=== PATIENT | male | born 1935 | race African-American/Black ===

== ENCOUNTER → 2018-03-06 | Outpatient (CLI) | payer MEDICARE, BC ==
[~2018-03-06] MED LIST: BRIM10DR2 OP; BUSP10TA3 PO; CLON0.1T PO; DUTA0.5C2 PO; FURO40TA5 PO; LOVA20TA2 PO; METO25TA6 PO; TRAV2.5D EACHEYE; VALS320T2 PO
== END | disposition home or self-care (01) ==
LOC: US 12:31
PROVIDERS: ATTEND Internal Medicine Nephrology
DX: N18.9 Chronic kidney disease, unspecified (principal)
CPT/HCPCS: 76770

== ENCOUNTER → 2023-02-15 | Outpatient (CLI) | payer MEDICARE, BC ==
[~2023-02-15] MED LIST changes: -TRAV2.5D EACHEYE; +TRAV2.5D9 EACHEYE
== END | disposition home or self-care (01) ==
LOC: US 14:50
PROVIDERS: ATTEND Internal Medicine Nephrology
DX: N20.0 Calculus of kidney (principal); I72.3 Aneurysm of iliac artery; N18.30 Chronic kidney disease, stage 3 unspecified
CPT/HCPCS: 76770

== ENCOUNTER 2023-04-25 14:03 | Inpatient (IN) | payer MEDICARE, BC ==
[~2023-04-25] VITALS: Ht 177.8 cm; Wt 73.0 kg
[2023-04-25] MEDS ORDERED: SODIUM CHLORIDE 0.9% 1000ML BAG (SEPSIS BOLUS) IV ONE (14:45)
[2023-04-25] MEDS ORDERED: CEFTRIAXONE 1GM PREMIX 50 ML IV ONE (14:45)
[2023-04-25 14:53] LABS: BASOPHILS % 0.4 % (0.0-2.0); EOSINOPHILS % 0.3 % (0.0-5.0); HEMATOCRIT. 29.6 % (42.0-52.0); HEMOGLOBIN. 9.8 g/dL (14.0-18.0); LYMPHOCYTES % 7.6 % (20.0-50.0); MEAN CORPUSCULAR HEMOGLOBIN 30.2 pg (28.0-32.0); MEAN CORPUSCULAR VOLUME 90.9 fL (80.0-94.0); MEAN PLATELET VOLUME 8.8 fl (7.4-10.4); MONOCYTES % 8.3 % (2.0-8.0); NEUTROPHILS % 83.4 % (40.0-76.0); PLATELET 111 x1000/uL (130-400); RED BLOOD CELL COUNT 3.26 mill/uL (4.7-6.1); RED CELL DISTRIBUTION WIDTH 13.6 % (11.6-14.6)
[2023-04-25 14:59] LABS: INR 1.3; PROTHROMBIN TIME 13.8 sec (9.6-11.0)
[2023-04-25 15:00] LABS: CHLORIDE 103 mEq/L (98-107)
[2023-04-25] MEDS: DEXT 5%/0.45% NACL 1000ML 1,000 ML IV SCH (16:00)
[2023-04-25] MEDS ORDERED: ONDANSETRON HCL 4MG/2ML INJ IV PRN ×2 (16:00→23:00)
[2023-04-25] MEDS ORDERED: MAGNESIUM/ALUMINUM HYDROXIDE/SIMETHICONE 30ML UDC PO PRN (23:00)
[2023-04-25] MEDS ORDERED: CLONIDINE 0.1MG TABLET PO PRN (23:00)
[2023-04-25] MEDS ORDERED: ACETAMINOPHEN 325MG TABLET PO PRN (23:00)
[2023-04-25] MEDS ORDERED: GUAIFENESIN 200MG/10ML SUGAR FREE UDC PO PRN (23:00)
[2023-04-25] MEDS ORDERED: IPRATROPIUM/ALBUTEROL 0.5-3(2.5)MG/3ML NEB NEB PRN (23:00)
[2023-04-26] VITALS (9 sets, daily range): BP systolic 107–167; BP diastolic 44–86; PULSE 61–96; RESP 16–27; TEMP 96.9–98.9
[2023-04-26 00:35] LABS: PROSTRATE SPECIFIC AG TOTAL 0.22 ng/mL (0.0-4.0)
[2023-04-26] MEDS: ACETAMINOPHEN 325MG TABLET PO PRN ×3 (00:45→23:39)
[2023-04-26 01:01] LABS: VITAMIN B12 SERUM 1225 pg/mL (211-911)
[2023-04-26 01:34] LABS: HEPATITIS B SURFACE ANTIGEN NEGATIVE
[2023-04-26 06:16] LABS: HEMATOCRIT. 28.6 % (42.0-52.0); HEMOGLOBIN. 9.6 g/dL (14.0-18.0); MEAN CORPUSCULAR VOLUME 89.1 fL (80.0-94.0); MEAN PLATELET VOLUME 9.6 fl (7.4-10.4); PLATELET 113 x1000/uL (130-400); RED BLOOD CELL COUNT 3.21 mill/uL (4.7-6.1); RED CELL DISTRIBUTION WIDTH 13.6 % (11.6-14.6)
[2023-04-26 06:35] LABS: CHLORIDE 107 mEq/L (98-107)
[2023-04-26] MEDS: BLOOD SUGAR DIAGNOSTIC STRIP TEST SCH ×4 (06:43→21:00)
[2023-04-26] MEDS: INSULIN LISPRO 100 UNITS/ML SUBCUT SCH ×4 (06:45→21:00)
[2023-04-26 06:52] LABS: CREATINE KINASE 139 IU/L (39-308); CREATINE KINASE MB FRACTION 2.9 ng/mL (0.5-3.6); HDL CHOLESTEROL 51 mg/dL (40-59); LDL CHOLESTEROL 84 mg/dL (5-100); T4 FREE 0.98 ng/dL (0.76-1.46)
[2023-04-26] MEDS: AMLODIPINE 5MG TABLET PO SCH (08:21)
[2023-04-26 09:00] LABS: CLARITY URINE CLEAR (CLEAR); COLOR URINE YELLOW (YELLOW); KETONES URINE NEGATIVE (NEGATIVE); LEUKOCYTE ESTERASE URINE NEGATIVE (NEGATIVE); NITRITE URINE NEGATIVE (NEGATIVE); OCCULT BLOOD URINE 2+ (NEGATIVE); PROTEIN URINE TRACE (NEGATIVE); UROBILINOGEN URINE 0.2 E.U./dL (0.2-1.0)
[2023-04-26 09:25] LABS: *AMPHETAMINES SCREEN URINE NEGATIVE (NEGATIVE); *BARBITURATES SCREEN URINE NEGATIVE (NEGATIVE); *BENZODIAZEPINES SCREEN URINE NEGATIVE (NEGATIVE); *COCAINE SCREEN URINE NEGATIVE (NEGATIVE); CANNABINOID URINE SCREEN NEGATIVE (NEGATIVE); METHADONE URINE SCREEN NEGATIVE (NEGATIVE); OPIATES URINE SCREEN NEGATIVE (NEGATIVE); PHENCYCLIDINE URINE SCREEN NEGATIVE (NEGATIVE)
[2023-04-26] MEDS: APIXABAN 2.5 MG TABLET PO SCH ×2 (11:27→16:22)
[2023-04-26] MEDS: LOSARTAN POTASSIUM 100 MG TABLET PO SCH (11:27)
[2023-04-26] MEDS: PIPERACILLIN/TAZOBACTAM 3.375 G in DEXTROSE 5% WATER 50 ML IV SCH ×3 (11:28→23:03)
[2023-04-26] MEDS: DEXT 5%/0.45% NACL 1000ML 1,000 ML IV SCH (11:30)
[2023-04-26] MEDS ORDERED: IOHEXOL-350 100 ML BOTTLE ONE (14:06)
[2023-04-26 14:14] LABS: PLATELET ESTIMATE SLIGHTLY DECREASED
[2023-04-26 14:54] LABS: TOTAL IRON BINDING CAPACITY 184 ug/dL (250-450)
[2023-04-26] MEDS ORDERED: CEFTRIAXONE 1,000 MG in DEXTROSE 5% WATER 50 ML IV SCH (15:00)
[2023-04-26] MEDS: BRIMONIDINE 0.2% OPHTH DROPS 5ML EACHEYE SCH ×2 (15:20→22:55)
[2023-04-26 15:57] LABS: CREATINE KINASE MB FRACTION 3.6 ng/mL (0.5-3.6)
[2023-04-26] MEDS: PANTOPRAZOLE SODIUM 40 MG/VIAL IV SCH (16:22)
[2023-04-26] MEDS: METOPROLOL TARTRATE 25MG TABLET PO SCH (16:23)
[2023-04-26 20:29] LABS: HEMATOCRIT 28.7 % (42.0-52.0); HEMOGLOBIN 9.6 g/dL (14.0-18.0)
[2023-04-26] MEDS: DOXAZOSIN MESYLATE 4MG TABLET PO SCH (21:00)
[2023-04-26] MEDS: BUSPIRONE HCL 10MG TABLET PO SCH (21:24)
[2023-04-26] MEDS: DUTASTERIDE 0.5MG CAPSULE PO SCH (21:25)
[2023-04-27] VITALS: BP 141/87; PULSE 66; RESP 24; TEMP 97.4
[2023-04-27 01:15] LABS: HEMATOCRIT 31.6 % (42.0-52.0); HEMOGLOBIN 10.3 g/dL (14.0-18.0)
[2023-04-27] MEDS: PANTOPRAZOLE SODIUM 40 MG/VIAL IV SCH ×3 (03:53→23:54)
[2023-04-27 04:00] VITALS: BP 153/88; PULSE 65; RESP 24; TEMP 96.9
[2023-04-27] MEDS: DEXT 5%/0.45% NACL 1000ML 1,000 ML IV SCH ×2 (04:19→23:46)
[2023-04-27] MEDS: BRIMONIDINE 0.2% OPHTH DROPS 5ML EACHEYE SCH ×3 (06:27→22:00)
[2023-04-27] MEDS: PIPERACILLIN/TAZOBACTAM 3.375 G in DEXTROSE 5% WATER 50 ML IV SCH ×3 (06:30→21:18)
[2023-04-27] MEDS: BLOOD SUGAR DIAGNOSTIC STRIP TEST SCH ×4 (06:30→21:00)
[2023-04-27] MEDS: INSULIN LISPRO 100 UNITS/ML SUBCUT SCH ×4 (07:05→21:00)
[2023-04-27 07:54] VITALS: BP 119/84; PULSE 98; RESP 16; TEMP 97.2
[2023-04-27] MEDS: METOPROLOL TARTRATE 25MG TABLET PO SCH ×2 (08:37→17:19)
[2023-04-27] MEDS: LOSARTAN POTASSIUM 100 MG TABLET PO SCH (08:37)
[2023-04-27] MEDS: LORAZEPAM 2MG/ML CPJ IV PRN ×2 (08:38→17:30)
[2023-04-27] MEDS: AMLODIPINE 5MG TABLET PO SCH (08:38)
[2023-04-27 09:19] LABS: HEMATOCRIT 27.8 % (42.0-52.0); HEMOGLOBIN 9.4 g/dL (14.0-18.0)
[2023-04-27] MEDS ORDERED: POTASSIUM CHLORIDE 20MEQ TABLET SR PO NR (11:45)
[2023-04-27] MEDS: DEXTROSE 50% WATER 50ML SYRINGE IV PRN (11:58)
[2023-04-27] MEDS ORDERED: IOHEXOL-350 100 ML BOTTLE ONE (12:04)
[2023-04-27] MEDS: FERROUS SULFATE 325MG TABLET PO SCH ×2 (12:07→17:19)
[2023-04-27 12:23] VITALS: BP 132/72; PULSE 71; RESP 14; TEMP 97.8
[2023-04-27 16:53] VITALS: BP 103/60; PULSE 61; RESP 18; TEMP 98
[2023-04-27 17:13] LABS: HEMATOCRIT 29.3 % (42.0-52.0); HEMOGLOBIN 9.7 g/dL (14.0-18.0)
[2023-04-27 20:00] VITALS: BP 124/72; PULSE 60; RESP 19; TEMP 98
[2023-04-27] MEDS: DOXAZOSIN MESYLATE 4MG TABLET PO SCH ×2 (21:00→23:53)
[2023-04-27] MEDS: DUTASTERIDE 0.5MG CAPSULE PO SCH ×2 (21:00→23:53)
[2023-04-27] MEDS: BUSPIRONE HCL 10MG TABLET PO SCH ×2 (21:00→23:53)
[2023-04-28] VITALS: BP 137/82; PULSE 68; RESP 16; TEMP 97.8
[2023-04-28 04:00] VITALS: BP 123/58; PULSE 68; RESP 18; TEMP 97.5
[2023-04-28] MEDS: PIPERACILLIN/TAZOBACTAM 3.375 G in DEXTROSE 5% WATER 50 ML IV SCH ×3 (05:48→23:37)
[2023-04-28] MEDS: BRIMONIDINE 0.2% OPHTH DROPS 5ML EACHEYE SCH ×3 (05:54→23:46)
[2023-04-28 06:35] LABS: HEMATOCRIT. 27.9 % (42.0-52.0); HEMOGLOBIN. 9.4 g/dL (14.0-18.0); MEAN CORPUSCULAR HEMOGLOBIN 29.6 pg (28.0-32.0); MEAN CORPUSCULAR VOLUME 88.3 fL (80.0-94.0); MEAN PLATELET VOLUME 10.5 fl (7.4-10.4); PLATELET 107 x1000/uL (130-400); RED BLOOD CELL COUNT 3.17 mill/uL (4.7-6.1); RED CELL DISTRIBUTION WIDTH 13.6 % (11.6-14.6)
[2023-04-28] MEDS: BLOOD SUGAR DIAGNOSTIC STRIP TEST SCH ×4 (06:50→21:00)
[2023-04-28 06:59] LABS: PHOSPHORUS 2.5 mg/dL (2.5-4.9)
[2023-04-28] MEDS ORDERED: PHENYLEPHRINE 100MCG/ML 10ML VIAL (CATH LAB) ONE (07:00)
[2023-04-28] MEDS: INSULIN LISPRO 100 UNITS/ML SUBCUT SCH ×4 (07:06→21:00)
[2023-04-28] MEDS: FERROUS SULFATE 325MG TABLET PO SCH ×3 (07:20→18:24)
[2023-04-28 08:00] VITALS: BP 114/64; PULSE 69; RESP 13; TEMP 98.3
[2023-04-28] MEDS: AMLODIPINE 5MG TABLET PO SCH (09:00)
[2023-04-28] MEDS: PANTOPRAZOLE SODIUM 40 MG/VIAL IV SCH ×2 (09:00→23:46)
[2023-04-28] MEDS: METOPROLOL TARTRATE 25MG TABLET PO SCH ×2 (09:00→18:24)
[2023-04-28] MEDS: LOSARTAN POTASSIUM 100 MG TABLET PO SCH (09:00)
[2023-04-28] MEDS ORDERED: IODIXANOL 320MG/ML 100 ML BOTTLE IV ONE (09:57)
[2023-04-28] MEDS ORDERED: IODIXANOL 320 MG/ML 150ML BOTTLE IV ONE (09:57)
[2023-04-28] MEDS ORDERED: MORPHINE SULFATE 2 MG/ML CPJ (NOT FOR IM USE) IV PRN (10:00)
[2023-04-28] MEDS ORDERED: LIDOCAINE HCL 1% 10 MG/ML 10ML VIAL ONE (10:03)
[2023-04-28] MEDS ORDERED: MIDAZOLAM HCL 2 MG/2 ML VIAL ONE (10:04)
[2023-04-28] MEDS ORDERED: PROPOFOL 200MG/20ML VIAL IV ONE (10:04)
[2023-04-28] MEDS ORDERED: FENTANYL CITRATE/PF 50MCG/ML 2ML VIAL ONE (10:04)
[2023-04-28] MEDS ORDERED: LIDOCAINE HCL 1% 20ML VIAL (Pyxis) INJ ONE (10:15)
[2023-04-28] MEDS ORDERED: NALOXONE HCL 0.4MG/ML VIAL IV PRN (10:15)
[2023-04-28] MEDS ORDERED: ONDANSETRON HCL 4MG/2ML INJ IV PRN (10:45)
[2023-04-28] MEDS ORDERED: MEPERIDINE HCL/PF 25MG/ML CPJ IV PRN (10:45)
[2023-04-28] MEDS ORDERED: LABETALOL 5MG/ML SYR 20 MG/4 ML SYRINGE IV PRN (10:45)
[2023-04-28] MEDS ORDERED: HYDROMORPHONE HCL/PF 2MG/ML CPJ IV PRN (10:45)
[2023-04-28] MEDS ORDERED: CALCIUM GLUCONATE 1GM PREMIX 50 ML IV NR (11:00)
[2023-04-28 16:00] VITALS: BP 124/70; PULSE 65; RESP 18; TEMP 97.2
[2023-04-28 16:13] LABS: HEMATOCRIT. 25.9 % (42.0-52.0); HEMOGLOBIN. 8.8 g/dL (14.0-18.0); MEAN CORPUSCULAR HEMOGLOBIN 30.1 pg (28.0-32.0); MEAN CORPUSCULAR VOLUME 88.2 fL (80.0-94.0); MEAN PLATELET VOLUME 9.8 fl (7.4-10.4); PLATELET 98 x1000/uL (130-400); RED BLOOD CELL COUNT 2.94 mill/uL (4.7-6.1); RED CELL DISTRIBUTION WIDTH 13.9 % (11.6-14.6)
[2023-04-28 23:20] LABS: PLATELET ESTIMATE DECREASED
[2023-04-28 23:21] VITALS: BP 144/85; PULSE 72; RESP 12; TEMP 98.5
[2023-04-28] MEDS: DEXT 5%/0.45% NACL 1000ML 1,000 ML IV SCH (23:37)
[2023-04-28] MEDS: DUTASTERIDE 0.5MG CAPSULE PO SCH (23:45)
[2023-04-28] MEDS: DOXAZOSIN MESYLATE 4MG TABLET PO SCH (23:45)
[2023-04-28] MEDS: BUSPIRONE HCL 10MG TABLET PO SCH (23:46)
[2023-04-29] VITALS (7 sets, daily range): BP systolic 105–124; BP diastolic 56–69; PULSE 64–85; RESP 14–20; TEMP 97.6–99.4
[2023-04-29] MEDS: PIPERACILLIN/TAZOBACTAM 3.375 G in DEXTROSE 5% WATER 50 ML IV SCH ×3 (05:50→21:36)
[2023-04-29] MEDS: BRIMONIDINE 0.2% OPHTH DROPS 5ML EACHEYE SCH ×3 (05:51→21:36)
[2023-04-29] MEDS: BLOOD SUGAR DIAGNOSTIC STRIP TEST SCH ×4 (06:50→21:53)
[2023-04-29] MEDS: INSULIN LISPRO 100 UNITS/ML SUBCUT SCH ×4 (07:20→21:00)
[2023-04-29] MEDS: METOPROLOL TARTRATE 25MG TABLET PO SCH ×2 (08:32→17:00)
[2023-04-29] MEDS: AMLODIPINE 5MG TABLET PO SCH (08:32)
[2023-04-29] MEDS: PANTOPRAZOLE SODIUM 40 MG/VIAL IV SCH ×2 (08:32→21:33)
[2023-04-29] MEDS: FERROUS SULFATE 325MG TABLET PO SCH ×3 (08:32→17:17)
[2023-04-29] MEDS: LOSARTAN POTASSIUM 100 MG TABLET PO SCH (08:32)
[2023-04-29 12:36] LABS: HEMATOCRIT. 24.6 % (42.0-52.0); HEMOGLOBIN. 8.4 g/dL (14.0-18.0); MEAN CORPUSCULAR HEMOGLOBIN 30.3 pg (28.0-32.0); MEAN CORPUSCULAR VOLUME 89.4 fL (80.0-94.0); MEAN PLATELET VOLUME 10.1 fl (7.4-10.4); PLATELET 101 x1000/uL (130-400); RED BLOOD CELL COUNT 2.76 mill/uL (4.7-6.1); RED CELL DISTRIBUTION WIDTH 13.4 % (11.6-14.6)
[2023-04-29 13:49] LABS: PLATELET ESTIMATE DECREASED
[2023-04-29 14:40] LABS: PLATELET ESTIMATE DECREASED
[2023-04-29] MEDS: DEXT 5%/0.45% NACL 1000ML 1,000 ML IV SCH (16:46)
[2023-04-29] MEDS: BUSPIRONE HCL 10MG TABLET PO SCH (21:33)
[2023-04-29] MEDS: DUTASTERIDE 0.5MG CAPSULE PO SCH (21:33)
[2023-04-29] MEDS: DOXAZOSIN MESYLATE 4MG TABLET PO SCH (21:35)
[2023-04-30] VITALS: BP 116/56; PULSE 71; RESP 18; TEMP 98.2
[2023-04-30 04:00] VITALS: BP 134/60; PULSE 77; RESP 18; TEMP 97.9
[2023-04-30] MEDS: BRIMONIDINE 0.2% OPHTH DROPS 5ML EACHEYE SCH ×3 (06:05→22:00)
[2023-04-30] MEDS: PIPERACILLIN/TAZOBACTAM 3.375 G in DEXTROSE 5% WATER 50 ML IV SCH ×3 (06:05→22:00)
[2023-04-30] MEDS: FERROUS SULFATE 325MG TABLET PO SCH ×3 (06:05→17:45)
[2023-04-30] MEDS: BLOOD SUGAR DIAGNOSTIC STRIP TEST SCH ×4 (06:50→21:00)
[2023-04-30 06:53] LABS: BASOPHILS % 0.4 % (0.0-2.0); HEMATOCRIT. 23.8 % (42.0-52.0); HEMOGLOBIN. 8.1 g/dL (14.0-18.0); LYMPHOCYTES % 10.9 % (20.0-50.0); MEAN CORPUSCULAR HEMOGLOBIN 30.2 pg (28.0-32.0); MEAN CORPUSCULAR VOLUME 88.4 fL (80.0-94.0); MEAN PLATELET VOLUME 10.1 fl (7.4-10.4); MONOCYTES % 13.2 % (2.0-8.0); NEUTROPHILS % 68.5 % (40.0-76.0); PLATELET 107 x1000/uL (130-400); RED CELL DISTRIBUTION WIDTH 13.6 % (11.6-14.6)
[2023-04-30] MEDS: INSULIN LISPRO 100 UNITS/ML SUBCUT SCH ×4 (07:20→21:00)
[2023-04-30 08:00] VITALS: BP 136/77; PULSE 93; RESP 20; TEMP 97.9
[2023-04-30] MEDS: AMLODIPINE 5MG TABLET PO SCH (08:10)
[2023-04-30] MEDS: METOPROLOL TARTRATE 25MG TABLET PO SCH ×2 (08:11→17:46)
[2023-04-30] MEDS: PANTOPRAZOLE SODIUM 40 MG/VIAL IV SCH ×2 (08:11→21:33)
[2023-04-30] MEDS ORDERED: POTASSIUM CHLORIDE 20MEQ/PACKET PO NR (09:30)
[2023-04-30] MEDS: LORAZEPAM 2MG/ML CPJ IV PRN (11:11)
[2023-04-30 12:00] VITALS: BP 101/52; PULSE 65; RESP 18; TEMP 98.1
[2023-04-30] MEDS: DEXT 5%/0.45% NACL 1000ML 1,000 ML IV SCH (12:19)
[2023-04-30 16:00] VITALS: BP 119/66; PULSE 67; RESP 18; TEMP 98.7
[2023-04-30] MEDS ORDERED: METOCLOPRAMIDE HCL 10MG/2ML VIAL IV NR ×2 (16:30→20:30)
[2023-04-30] MEDS ORDERED: BISACODYL 5MG TABLET PO NR ×2 (16:30→20:30)
[2023-04-30] MEDS ORDERED: SORBITOL 70% SOLN 30ML PO NR ×2 (17:00→21:00)
[2023-04-30 20:00] VITALS: BP 138/74; PULSE 65; RESP 17; TEMP 98.6
[2023-04-30] MEDS: DOXAZOSIN MESYLATE 4MG TABLET PO SCH (21:32)
[2023-04-30] MEDS: DUTASTERIDE 0.5MG CAPSULE PO SCH (21:32)
[2023-04-30] MEDS: BUSPIRONE HCL 10MG TABLET PO SCH (21:33)
[2023-05-01] VITALS: BP 129/63; PULSE 63; RESP 18; TEMP 97.2
[2023-05-01 04:00] VITALS: BP 130/75; PULSE 73; RESP 18; TEMP 98.2
[2023-05-01] MEDS: BRIMONIDINE 0.2% OPHTH DROPS 5ML EACHEYE SCH ×3 (06:38→21:42)
[2023-05-01] MEDS: DEXT 5%/0.45% NACL 1000ML 1,000 ML IV SCH (06:38)
[2023-05-01] MEDS: BLOOD SUGAR DIAGNOSTIC STRIP TEST SCH ×4 (06:41→20:58)
[2023-05-01 06:55] LABS: INR 1.2; PROTHROMBIN TIME 12.4 sec (9.6-11.0)
[2023-05-01] MEDS: INSULIN LISPRO 100 UNITS/ML SUBCUT SCH ×4 (07:20→21:00)
[2023-05-01] MEDS: FERROUS SULFATE 325MG TABLET PO SCH ×3 (07:20→17:20)
[2023-05-01 07:36] LABS: CHLORIDE 120 mEq/L (98-107)
[2023-05-01 07:43] LABS: PHOSPHORUS 2.9 mg/dL (2.5-4.9)
[2023-05-01 07:52] LABS: BASOPHILS % 0.4 % (0.0-2.0); EOSINOPHILS % 2.2 % (0.0-5.0); HEMATOCRIT. 24.9 % (42.0-52.0); HEMOGLOBIN. 8.4 g/dL (14.0-18.0); LYMPHOCYTES % 7.1 % (20.0-50.0); MEAN CORPUSCULAR HEMOGLOBIN 30.1 pg (28.0-32.0); MONOCYTES % 10.4 % (2.0-8.0); NEUTROPHILS % 79.9 % (40.0-76.0); RED BLOOD CELL COUNT 2.79 mill/uL (4.7-6.1); RED CELL DISTRIBUTION WIDTH 13.8 % (11.6-14.6)
[2023-05-01 08:00] VITALS: BP 130/70; PULSE 73; RESP 18; TEMP 98
[2023-05-01] MEDS: METOPROLOL TARTRATE 25MG TABLET PO SCH ×2 (09:00→17:00)
[2023-05-01] MEDS: AMLODIPINE 5MG TABLET PO SCH (09:00)
[2023-05-01] MEDS: PANTOPRAZOLE SODIUM 40 MG/VIAL IV SCH ×2 (09:54→21:29)
[2023-05-01 12:00] VITALS: BP 140/81; PULSE 65; RESP 18; TEMP 98.2
[2023-05-01 16:00] VITALS: BP 128/63; PULSE 75; RESP 20; TEMP 98.4
[2023-05-01] MEDS ORDERED: PROPOFOL 200MG/20ML VIAL IV ONE (16:31)
[2023-05-01] MEDS ORDERED: SIMETHICONE 40 MG/0.6 ML 15ML ONE (16:35)
[2023-05-01] MEDS ORDERED: DEXAMETHASONE 4MG/ML 1ML VIAL ONE (16:59)
[2023-05-01] MEDS ORDERED: ONDANSETRON HCL 4MG/2ML INJ ONE (17:00)
[2023-05-01] MEDS ORDERED: FENTANYL CITRATE/PF 50MCG/ML 2ML VIAL ONE (17:00)
[2023-05-01 20:00] VITALS: BP 134/76; PULSE 72; RESP 14; TEMP 98.6
[2023-05-01] MEDS: DUTASTERIDE 0.5MG CAPSULE PO SCH (21:28)
[2023-05-01] MEDS: BUSPIRONE HCL 10MG TABLET PO SCH (21:29)
[2023-05-01] MEDS: DOXAZOSIN MESYLATE 4MG TABLET PO SCH (21:29)
[2023-05-02] VITALS: BP 132/72; PULSE 73; RESP 18; TEMP 97.8
[2023-05-02 04:00] VITALS: BP 130/69; PULSE 64; RESP 11; TEMP 98.1
[2023-05-02 05:57] LABS: HEMATOCRIT. 23.2 % (42.0-52.0); HEMOGLOBIN. 7.8 g/dL (14.0-18.0); MEAN CORPUSCULAR HEMOGLOBIN 30.2 pg (28.0-32.0); MEAN CORPUSCULAR VOLUME 89.7 fL (80.0-94.0); MEAN PLATELET VOLUME 9.5 fl (7.4-10.4); PLATELET 121 x1000/uL (130-400); RED BLOOD CELL COUNT 2.59 mill/uL (4.7-6.1); RED CELL DISTRIBUTION WIDTH 13.7 % (11.6-14.6)
[2023-05-02] MEDS: BLOOD SUGAR DIAGNOSTIC STRIP TEST SCH ×3 (06:22→16:50)
[2023-05-02] MEDS: BRIMONIDINE 0.2% OPHTH DROPS 5ML EACHEYE SCH ×3 (06:23→21:18)
[2023-05-02] MEDS: DEXT 5%/0.45% NACL 1000ML 1,000 ML IV SCH (06:24)
[2023-05-02] MEDS: INSULIN LISPRO 100 UNITS/ML SUBCUT SCH ×4 (07:20→21:00)
[2023-05-02 08:00] VITALS: BP 118/71; PULSE 66; RESP 20; TEMP 98.1
[2023-05-02] MEDS: PANTOPRAZOLE SODIUM 40 MG/VIAL IV SCH ×2 (08:34→21:16)
[2023-05-02] MEDS: METOPROLOL TARTRATE 25MG TABLET PO SCH ×2 (08:35→17:04)
[2023-05-02] MEDS: FERROUS SULFATE 325MG TABLET PO SCH ×3 (08:35→17:04)
[2023-05-02] MEDS: AMLODIPINE 5MG TABLET PO SCH (08:35)
[2023-05-02] MEDS: APIXABAN 2.5 MG TABLET PO SCH ×2 (10:56→17:02)
[2023-05-02 11:08] LABS: PLATELET ESTIMATE SLIGHTLY DECREASED
[2023-05-02 12:00] VITALS: BP 123/66; PULSE 67; RESP 20; TEMP 98.7
[2023-05-02 16:00] VITALS: BP 102/50; PULSE 97; RESP 20; TEMP 98.7
[2023-05-02 20:00] VITALS: BP 106/65; PULSE 67; RESP 20; TEMP 98.3
[2023-05-02] MEDS: DOXAZOSIN MESYLATE 4MG TABLET PO SCH (21:00)
[2023-05-02] MEDS: DUTASTERIDE 0.5MG CAPSULE PO SCH (21:16)
[2023-05-03] VITALS: BP 124/69; PULSE 68; RESP 20; TEMP 98.5
[2023-05-03 04:00] VITALS: BP 124/75; PULSE 73; RESP 22; TEMP 98.8
[2023-05-03] MEDS: BRIMONIDINE 0.2% OPHTH DROPS 5ML EACHEYE SCH ×3 (06:24→21:00)
[2023-05-03] MEDS: DEXTROSE 50% WATER 50ML SYRINGE IV PRN (06:24)
[2023-05-03 06:26] LABS: BASOPHILS % 0.4 % (0.0-2.0); EOSINOPHILS % 7.1 % (0.0-5.0); HEMATOCRIT. 24.4 % (42.0-52.0); HEMOGLOBIN. 8.2 g/dL (14.0-18.0); LYMPHOCYTES % 12.8 % (20.0-50.0); MEAN CORPUSCULAR HEMOGLOBIN 30.1 pg (28.0-32.0); MEAN CORPUSCULAR VOLUME 89.1 fL (80.0-94.0); MEAN PLATELET VOLUME 8.8 fl (7.4-10.4); NEUTROPHILS % 67.7 % (40.0-76.0); PLATELET 136 x1000/uL (130-400); RED BLOOD CELL COUNT 2.73 mill/uL (4.7-6.1); RED CELL DISTRIBUTION WIDTH 13.4 % (11.6-14.6)
[2023-05-03] MEDS: BLOOD SUGAR DIAGNOSTIC STRIP TEST SCH ×4 (06:52→21:00)
[2023-05-03] MEDS: INSULIN LISPRO 100 UNITS/ML SUBCUT SCH (07:20)
[2023-05-03 08:00] VITALS: BP 118/62; PULSE 82; RESP 19; TEMP 98.5
[2023-05-03] MEDS: FERROUS SULFATE 325MG TABLET PO SCH ×3 (08:02→17:17)
[2023-05-03] MEDS: APIXABAN 2.5 MG TABLET PO SCH ×2 (08:44→17:17)
[2023-05-03] MEDS: PANTOPRAZOLE SODIUM 40 MG/VIAL IV SCH ×2 (08:44→20:52)
[2023-05-03] MEDS: AMLODIPINE 5MG TABLET PO SCH (08:47)
[2023-05-03] MEDS: METOPROLOL TARTRATE 25MG TABLET PO SCH ×2 (08:48→17:17)
[2023-05-03] MEDS: DEXTROSE 5% WATER 1,000 ML IV SCH (09:14)
[2023-05-03 12:00] VITALS: BP 113/69; PULSE 69; RESP 16; TEMP 98.7
[2023-05-03 16:00] VITALS: BP 148/78; PULSE 71; RESP 12; TEMP 98.1
[2023-05-03 20:00] VITALS: BP 145/86; PULSE 79; RESP 17; TEMP 98.2
[2023-05-03] MEDS: DUTASTERIDE 0.5MG CAPSULE PO SCH (20:51)
[2023-05-03] MEDS: DOXAZOSIN MESYLATE 4MG TABLET PO SCH (20:52)
[2023-05-03] MEDS: EPOETIN ALFA-EPBX 4,000 UNIT/ML VIAL SUBCUT SCH (20:53)
[2023-05-04] VITALS (7 sets, daily range): BP systolic 123–137; BP diastolic 62–74; PULSE 51–71; RESP 16–21; TEMP 97.6–98.6; O2SAT 97
[2023-05-04] MEDS: BRIMONIDINE 0.2% OPHTH DROPS 5ML EACHEYE SCH ×3 (06:16→21:39)
[2023-05-04] MEDS: BLOOD SUGAR DIAGNOSTIC STRIP TEST SCH ×4 (06:18→21:47)
[2023-05-04 06:51] LABS: HEMATOCRIT. 25.2 % (42.0-52.0); HEMOGLOBIN. 8.5 g/dL (14.0-18.0); MEAN CORPUSCULAR HEMOGLOBIN 30.2 pg (28.0-32.0); MEAN CORPUSCULAR VOLUME 89.4 fL (80.0-94.0); PLATELET 148 x1000/uL (130-400); RED BLOOD CELL COUNT 2.82 mill/uL (4.7-6.1); RED CELL DISTRIBUTION WIDTH 13.6 % (11.6-14.6)
[2023-05-04] MEDS: APIXABAN 2.5 MG TABLET PO SCH ×2 (08:27→17:08)
[2023-05-04] MEDS: FERROUS SULFATE 325MG TABLET PO SCH ×3 (08:27→17:08)
[2023-05-04] MEDS: PANTOPRAZOLE SODIUM 40 MG/VIAL IV SCH ×2 (08:28→21:37)
[2023-05-04] MEDS: METOPROLOL TARTRATE 25MG TABLET PO SCH ×2 (08:28→17:08)
[2023-05-04] MEDS: AMLODIPINE 5MG TABLET PO SCH (08:28)
[2023-05-04] MEDS: DEXTROSE 5% WATER 1,000 ML IV SCH ×2 (09:00→17:10)
[2023-05-04 09:56] LABS: PLATELET ESTIMATE NORMAL
[2023-05-04] MEDS: DOXAZOSIN MESYLATE 4MG TABLET PO SCH (21:38)
[2023-05-04] MEDS: DUTASTERIDE 0.5MG CAPSULE PO SCH (21:38)
[2023-05-05] VITALS: BP_SYST 128; BP_SYST 135; BP_DIAS 73; BP_DIAS 76; PULSE 64; PULSE 67; RESP 16; RESP 17; TEMP 99.1; TEMP 99.2
[2023-05-05 04:00] VITALS: BP 137/73; PULSE 64; RESP 16; TEMP 99.2
[2023-05-05] MEDS: BRIMONIDINE 0.2% OPHTH DROPS 5ML EACHEYE SCH ×3 (06:00→21:00)
[2023-05-05] MEDS: BLOOD SUGAR DIAGNOSTIC STRIP TEST SCH ×5 (06:50→21:17)
[2023-05-05 08:00] VITALS: BP 129/69; PULSE 69; RESP 9; TEMP 98.8
[2023-05-05] MEDS: FERROUS SULFATE 325MG TABLET PO SCH ×3 (08:33→17:50)
[2023-05-05] MEDS: APIXABAN 2.5 MG TABLET PO SCH ×2 (09:52→17:00)
[2023-05-05] MEDS: PANTOPRAZOLE SODIUM 40 MG/VIAL IV SCH ×2 (09:52→20:57)
[2023-05-05] MEDS: AMLODIPINE 5MG TABLET PO SCH (09:53)
[2023-05-05] MEDS: METOPROLOL TARTRATE 25MG TABLET PO SCH ×2 (09:53→17:00)
[2023-05-05] MEDS: FLUOXETINE HCL 10 MG CAPSULE PO SCH (10:03)
[2023-05-05] MEDS: DOCUSATE SODIUM 100MG CAPSULE PO PRN (10:03)
[2023-05-05 12:00] VITALS: BP 126/65; PULSE 65; RESP 18; TEMP 99
[2023-05-05 16:00] VITALS: BP 131/77; PULSE 64; RESP 12; TEMP 98.7
[2023-05-05] MEDS: DUTASTERIDE 0.5MG CAPSULE PO SCH (20:57)
[2023-05-05] MEDS: EPOETIN ALFA-EPBX 4,000 UNIT/ML VIAL SUBCUT SCH (20:58)
[2023-05-05] MEDS: DOXAZOSIN MESYLATE 4MG TABLET PO SCH (20:59)
[2023-05-06] VITALS: BP 121/57; PULSE 61; RESP 18; TEMP 97.8
[2023-05-06 04:00] VITALS: BP 133/61; PULSE 63; RESP 19; TEMP 97.9
[2023-05-06] MEDS: BRIMONIDINE 0.2% OPHTH DROPS 5ML EACHEYE SCH ×3 (06:01→21:03)
[2023-05-06] MEDS: BLOOD SUGAR DIAGNOSTIC STRIP TEST SCH ×4 (07:20→21:00)
[2023-05-06 08:00] VITALS: BP 135/62; PULSE 66; RESP 18; TEMP 98.2
[2023-05-06] MEDS: PANTOPRAZOLE SODIUM 40 MG/VIAL IV SCH ×2 (08:50→21:02)
[2023-05-06] MEDS: FERROUS SULFATE 325MG TABLET PO SCH ×3 (08:50→17:27)
[2023-05-06] MEDS: AMLODIPINE 5MG TABLET PO SCH (08:50)
[2023-05-06] MEDS: METOPROLOL TARTRATE 25MG TABLET PO SCH ×2 (08:51→17:27)
[2023-05-06] MEDS: FLUOXETINE HCL 10 MG CAPSULE PO SCH (08:51)
[2023-05-06] MEDS: DEXTROSE 5% WATER 1,000 ML IV SCH (08:54)
[2023-05-06] MEDS: APIXABAN 2.5 MG TABLET PO SCH ×2 (09:00→17:27)
[2023-05-06 12:00] VITALS: BP 135/63; PULSE 63; RESP 18; TEMP 98.1
[2023-05-06 16:00] VITALS: BP 127/65; PULSE 65; RESP 18; TEMP 97.9
[2023-05-06 20:00] VITALS: BP 131/50; PULSE 63; RESP 18; TEMP 98.4
[2023-05-06] MEDS: DUTASTERIDE 0.5MG CAPSULE PO SCH (21:02)
[2023-05-06] MEDS: DOXAZOSIN MESYLATE 4MG TABLET PO SCH (21:03)
[2023-05-07 04:00] VITALS: BP 113/59; PULSE 64; RESP 18; TEMP 99.8
[2023-05-07] MEDS: BRIMONIDINE 0.2% OPHTH DROPS 5ML EACHEYE SCH ×3 (06:00→20:16)
[2023-05-07] MEDS: BLOOD SUGAR DIAGNOSTIC STRIP TEST SCH ×4 (07:20→20:15)
[2023-05-07 08:00] VITALS: BP 116/59; PULSE 63; RESP 17; TEMP 101.3
[2023-05-07] MEDS: FLUOXETINE HCL 10 MG CAPSULE PO SCH (08:36)
[2023-05-07] MEDS: FERROUS SULFATE 325MG TABLET PO SCH ×3 (08:37→17:04)
[2023-05-07] MEDS: PANTOPRAZOLE SODIUM 40 MG/VIAL IV SCH ×2 (08:39→20:14)
[2023-05-07] MEDS: METOPROLOL TARTRATE 25MG TABLET PO SCH ×2 (08:39→17:03)
[2023-05-07] MEDS: APIXABAN 2.5 MG TABLET PO SCH ×2 (08:39→17:00)
[2023-05-07] MEDS: AMLODIPINE 5MG TABLET PO SCH (08:40)
[2023-05-07] MEDS: DEXTROSE 5% WATER 1,000 ML IV SCH (08:40)
[2023-05-07] MEDS: ACETAMINOPHEN 325MG TABLET PO PRN ×2 (08:40→15:38)
[2023-05-07 12:00] VITALS: BP 112/59; PULSE 62; RESP 15; TEMP 100.8
[2023-05-07 16:00] VITALS: BP 114/60; PULSE 66; RESP 18; TEMP 100.9
[2023-05-07] MEDS: DOCUSATE SODIUM 100MG CAPSULE PO PRN (16:59)
[2023-05-07 20:00] VITALS: BP 115/62; PULSE 67; RESP 20; TEMP 99.5
[2023-05-07] MEDS: DUTASTERIDE 0.5MG CAPSULE PO SCH (20:15)
[2023-05-07] MEDS: DOXAZOSIN MESYLATE 4MG TABLET PO SCH (20:15)
[2023-05-08] VITALS: BP 129/64; PULSE 61; RESP 19; TEMP 99.1
[2023-05-08] MEDS: BLOOD SUGAR DIAGNOSTIC STRIP TEST SCH ×3 (05:35→21:20)
[2023-05-08] MEDS: ACETAMINOPHEN 325MG TABLET PO PRN (05:35)
[2023-05-08] MEDS: BRIMONIDINE 0.2% OPHTH DROPS 5ML EACHEYE SCH ×3 (05:35→22:32)
[2023-05-08 05:48] LABS: HEMATOCRIT. 27.3 % (42.0-52.0); HEMOGLOBIN. 9.1 g/dL (14.0-18.0); MEAN CORPUSCULAR HEMOGLOBIN 29.4 pg (28.0-32.0); MEAN CORPUSCULAR VOLUME 88.6 fL (80.0-94.0); MEAN PLATELET VOLUME 8.8 fl (7.4-10.4); PLATELET 226 x1000/uL (130-400); RED BLOOD CELL COUNT 3.08 mill/uL (4.7-6.1); RED CELL DISTRIBUTION WIDTH 14.1 % (11.6-14.6)
[2023-05-08 08:00] VITALS: BP 105/48; PULSE 62; RESP 18; TEMP 98
[2023-05-08] MEDS: AMLODIPINE 5MG TABLET PO SCH (09:00)
[2023-05-08] MEDS: METOPROLOL TARTRATE 25MG TABLET PO SCH (09:00)
[2023-05-08] MEDS: APIXABAN 2.5 MG TABLET PO SCH (09:24)
[2023-05-08] MEDS: FERROUS SULFATE 325MG TABLET PO SCH ×2 (09:26→15:38)
[2023-05-08] MEDS: PANTOPRAZOLE SODIUM 40 MG/VIAL IV SCH ×2 (09:26→21:19)
[2023-05-08] MEDS: FLUOXETINE HCL 10 MG CAPSULE PO SCH (09:26)
[2023-05-08] MEDS: DEXTROSE 5% WATER 1,000 ML IV SCH (09:27)
[2023-05-08 12:00] VITALS: BP 108/52; PULSE 70; RESP 18; TEMP 97.7
[2023-05-08 13:48] LABS: PLATELET ESTIMATE NORMAL
[2023-05-08] MEDS ORDERED: DIPHENHYDRAMINE 25MG CAPSULE PO PRN (15:30)
[2023-05-08 16:00] VITALS: BP 122/45; PULSE 64; RESP 17; TEMP 98.3
[2023-05-08 18:46] LABS: PHOSPHORUS 2.9 mg/dL (2.5-4.9)
[2023-05-08 20:00] VITALS: BP 144/71; PULSE 63; RESP 17; TEMP 97.4
[2023-05-08] MEDS: DOXAZOSIN MESYLATE 4MG TABLET PO SCH (21:00)
[2023-05-08] MEDS: EPOETIN ALFA-EPBX 4,000 UNIT/ML VIAL SUBCUT SCH (21:19)
[2023-05-08] MEDS: DUTASTERIDE 0.5MG CAPSULE PO SCH (22:32)
[2023-05-09] VITALS: BP 127/69; PULSE 85; RESP 17; TEMP 98.9
[2023-05-09 04:00] VITALS: BP 119/70; PULSE 76; RESP 19; TEMP 98.1
[2023-05-09] MEDS: BLOOD SUGAR DIAGNOSTIC STRIP TEST SCH ×4 (06:50→21:00)
[2023-05-09] MEDS: BRIMONIDINE 0.2% OPHTH DROPS 5ML EACHEYE SCH ×3 (06:50→22:24)
[2023-05-09 07:26] LABS: HEMATOCRIT. 27.1 % (42.0-52.0); HEMOGLOBIN. 9.2 g/dL (14.0-18.0); MEAN CORPUSCULAR HEMOGLOBIN 29.8 pg (28.0-32.0); MEAN CORPUSCULAR VOLUME 88.1 fL (80.0-94.0); MEAN PLATELET VOLUME 8.9 fl (7.4-10.4); PLATELET 239 x1000/uL (130-400); RED BLOOD CELL COUNT 3.08 mill/uL (4.7-6.1); RED CELL DISTRIBUTION WIDTH 13.9 % (11.6-14.6)
[2023-05-09 08:00] VITALS: BP 110/59; PULSE 63; RESP 16; TEMP 97.9
[2023-05-09] MEDS: APIXABAN 2.5 MG TABLET PO SCH ×3 (09:00→17:14)
[2023-05-09] MEDS: FLUOXETINE HCL 10 MG CAPSULE PO SCH (09:02)
[2023-05-09] MEDS: FERROUS SULFATE 325MG TABLET PO SCH ×3 (09:03→17:14)
[2023-05-09] MEDS: AMLODIPINE 5MG TABLET PO SCH (09:03)
[2023-05-09] MEDS: METOPROLOL TARTRATE 25MG TABLET PO SCH ×2 (09:04→17:14)
[2023-05-09] MEDS ORDERED: CEFTRIAXONE 1GM PREMIX 50 ML IV SCH (09:15)
[2023-05-09 09:25] LABS: BG CARBOXYHEMOGLOBIN 0.3 % (0.5-1.5); BG DEOXYHEMOGLOBIN 4.2 % (0.0-5.0); BG FRACTION INSPIRED OXYGEN 21; BG HCO3 ACT 21.6 mmol/L (22.0-26.0); BG METHEMOGLOBIN 0.5 % (0.0-1.5); BG OXYGEN SATURATION 95.8 % (92.0-98.5); BG PCO2 32.6 mmHg (35.0-45.0); BG PH 7.439 (7.350-7.450); BG PO2 80.5 mmHg (75.0-100.0); BG SAMPLE SITE RIGHT RADIAL; BG TOTAL HEMOGLOBIN 10.7 g/dL (12.0-18.0); BG VENT MODE ROOM AIR
[2023-05-09] MEDS: DIPHENHYDRAMINE 50MG/ML VIAL IV SCH ×2 (11:15→17:14)
[2023-05-09] MEDS: METHYLPREDNISOLONE SOD SUCC 125MG/2ML (ACT-O-VIAL) IV SCH ×3 (11:15→22:25)
[2023-05-09 12:00] VITALS: BP 112/71; PULSE 67; RESP 18; TEMP 98.6
[2023-05-09] MEDS: FAMOTIDINE 20MG TABLET PO SCH ×2 (14:18→22:24)
[2023-05-09 16:00] VITALS: BP 108/61; PULSE 65; RESP 16; TEMP 96.4
[2023-05-09] MEDS: CEFTRIAXONE 1,000 MG in DEXTROSE 5% WATER 50 ML IV SCH (17:14)
[2023-05-09 19:58] VITALS: BP 120/64; PULSE 59; RESP 19; TEMP 97.6
[2023-05-09] MEDS: DOXAZOSIN MESYLATE 4MG TABLET PO SCH (21:00)
[2023-05-09 21:41] LABS: CREATINE KINASE 92 IU/L (39-308)
[2023-05-09] MEDS: DUTASTERIDE 0.5MG CAPSULE PO SCH (22:25)
[2023-05-10 00:08] VITALS: BP 121/67; PULSE 65; RESP 16; TEMP 97.2
[2023-05-10] MEDS: DIPHENHYDRAMINE 50MG/ML VIAL IV SCH ×5 (00:50→23:42)
[2023-05-10 04:00] VITALS: BP 122/64; PULSE 63; RESP 20; TEMP 96.6
[2023-05-10 04:24] LABS: PLATELET ESTIMATE NORMAL
[2023-05-10 05:45] LABS: HEMATOCRIT. 25.6 % (42.0-52.0); HEMOGLOBIN. 8.5 g/dL (14.0-18.0); MEAN CORPUSCULAR HEMOGLOBIN 29.2 pg (28.0-32.0); MEAN CORPUSCULAR VOLUME 87.9 fL (80.0-94.0); MEAN PLATELET VOLUME 8.8 fl (7.4-10.4); PLATELET 235 x1000/uL (130-400); RED BLOOD CELL COUNT 2.91 mill/uL (4.7-6.1); RED CELL DISTRIBUTION WIDTH 13.5 % (11.6-14.6)
[2023-05-10] MEDS: BRIMONIDINE 0.2% OPHTH DROPS 5ML EACHEYE SCH ×3 (06:00→21:27)
[2023-05-10] MEDS: METHYLPREDNISOLONE SOD SUCC 125MG/2ML (ACT-O-VIAL) IV SCH ×3 (07:14→21:19)
[2023-05-10] MEDS: FAMOTIDINE 20MG TABLET PO SCH ×3 (07:15→21:19)
[2023-05-10] MEDS: BLOOD SUGAR DIAGNOSTIC STRIP TEST SCH ×3 (07:15→21:19)
[2023-05-10 07:35] VITALS: BP 119/57; PULSE 57; RESP 18; TEMP 97.4
[2023-05-10] MEDS: CEFTRIAXONE 1,000 MG in DEXTROSE 5% WATER 50 ML IV SCH (09:19)
[2023-05-10] MEDS: FERROUS SULFATE 325MG TABLET PO SCH ×3 (09:20→17:37)
[2023-05-10] MEDS: AMLODIPINE 5MG TABLET PO SCH (09:20)
[2023-05-10] MEDS: APIXABAN 2.5 MG TABLET PO SCH ×2 (09:20→17:37)
[2023-05-10] MEDS: METOPROLOL TARTRATE 25MG TABLET PO SCH ×2 (09:21→17:39)
[2023-05-10 12:00] VITALS: BP 110/57; PULSE 64; RESP 18; TEMP 97.1
[2023-05-10] MEDS ORDERED: DEXTROSE 50% WATER 50ML SYRINGE IV PRN (13:00)
[2023-05-10] MEDS ORDERED: INSULIN GLARGINE 100 UNITS/ML SUBCUT NR (13:00)
[2023-05-10] MEDS: INSULIN LISPRO 100 UNITS/ML SUBCUT SCH ×4 (13:44→21:36)
[2023-05-10 16:00] VITALS: BP 125/64; PULSE 67; RESP 20; TEMP 97.1
[2023-05-10 20:00] VITALS: BP 123/71; PULSE 72; RESP 20; TEMP 97.7
[2023-05-10 20:14] LABS: CLARITY URINE TURBID (CLEAR); COLOR URINE YELLOW (YELLOW); KETONES URINE NEGATIVE (NEGATIVE); LEUKOCYTE ESTERASE URINE 1+ (NEGATIVE); NITRITE URINE POSITIVE (NEGATIVE); OCCULT BLOOD URINE 1+ (NEGATIVE); PROTEIN URINE 1+ (NEGATIVE); SPECIFIC GRAVITY URINE 1.019 (1.005-1.030); UROBILINOGEN URINE 0.2 E.U./dL (0.2-1.0)
[2023-05-10] MEDS: DUTASTERIDE 0.5MG CAPSULE PO SCH (21:19)
[2023-05-10] MEDS: DOXAZOSIN MESYLATE 4MG TABLET PO SCH (21:29)
[2023-05-10] MEDS ORDERED: INSULIN GLARGINE 100 UNITS/ML SUBCUT SCH (22:00)
[2023-05-11] VITALS: BP 125/62; PULSE 73; RESP 20; TEMP 97.2
[2023-05-11 03:36] LABS: PLATELET ESTIMATE NORMAL
[2023-05-11 04:00] VITALS: BP 130/60; PULSE 75; RESP 20; TEMP 97.5
[2023-05-11] MEDS: BRIMONIDINE 0.2% OPHTH DROPS 5ML EACHEYE SCH ×4 (06:00→22:00)
[2023-05-11] MEDS: METHYLPREDNISOLONE SOD SUCC 125MG/2ML (ACT-O-VIAL) IV SCH (06:00)
[2023-05-11] MEDS: DIPHENHYDRAMINE 50MG/ML VIAL IV SCH (06:00)
[2023-05-11] MEDS: FAMOTIDINE 20MG TABLET PO SCH ×4 (06:00→22:00)
[2023-05-11] MEDS: BLOOD SUGAR DIAGNOSTIC STRIP TEST SCH ×4 (06:12→21:32)
[2023-05-11 06:28] LABS: HEMATOCRIT. 25.5 % (42.0-52.0); HEMOGLOBIN. 8.6 g/dL (14.0-18.0); MEAN CORPUSCULAR HEMOGLOBIN 29.9 pg (28.0-32.0); MEAN PLATELET VOLUME 8.8 fl (7.4-10.4); PLATELET 251 x1000/uL (130-400); RED BLOOD CELL COUNT 2.87 mill/uL (4.7-6.1); RED CELL DISTRIBUTION WIDTH 14.1 % (11.6-14.6)
[2023-05-11] MEDS: INSULIN LISPRO 100 UNITS/ML SUBCUT SCH ×4 (08:10→21:00)
[2023-05-11] MEDS: QUETIAPINE FUMARATE 25MG TABLET PO SCH ×3 (09:26→21:32)
[2023-05-11] MEDS: FERROUS SULFATE 325MG TABLET PO SCH ×3 (09:26→17:23)
[2023-05-11] MEDS: APIXABAN 2.5 MG TABLET PO SCH ×2 (09:26→17:23)
[2023-05-11] MEDS: FLUCONAZOLE 100MG TABLET PO SCH (09:26)
[2023-05-11] MEDS: PREDNISONE 20MG TABLET PO SCH ×2 (09:27→17:23)
[2023-05-11] MEDS: AMLODIPINE 5MG TABLET PO SCH (09:27)
[2023-05-11] MEDS: METOPROLOL TARTRATE 25MG TABLET PO SCH ×2 (09:27→17:23)
[2023-05-11 12:00] VITALS: BP 116/54; PULSE 59; RESP 18; TEMP 97.5
[2023-05-11] MEDS: DIPHENHYDRAMINE 25MG CAPSULE PO SCH ×2 (15:30→23:30)
[2023-05-11 16:00] VITALS: BP 121/63; PULSE 68; RESP 18; TEMP 97.7
[2023-05-11 16:39] LABS: PLATELET ESTIMATE NORMAL
[2023-05-11] MEDS: DOXAZOSIN MESYLATE 4MG TABLET PO SCH ×2 (21:00→21:32)
[2023-05-11] MEDS: DUTASTERIDE 0.5MG CAPSULE PO SCH ×2 (21:00→21:31)
[2023-05-11] MEDS ORDERED: HALOPERIDOL LACTATE 5MG/ML VIAL IM PRN (23:00)
[2023-05-12] VITALS (7 sets, daily range): BP systolic 113–132; BP diastolic 60–68; PULSE 62–81; RESP 18–20; TEMP 96.6–97.8
[2023-05-12] MEDS: FAMOTIDINE 20MG TABLET PO SCH ×3 (06:42→21:20)
[2023-05-12] MEDS: BRIMONIDINE 0.2% OPHTH DROPS 5ML EACHEYE SCH ×4 (06:42→22:00)
[2023-05-12] MEDS: DIPHENHYDRAMINE 25MG CAPSULE PO SCH ×3 (07:30→23:13)
[2023-05-12] MEDS: INSULIN LISPRO 100 UNITS/ML SUBCUT SCH ×4 (07:50→21:00)
[2023-05-12] MEDS: FERROUS SULFATE 325MG TABLET PO SCH ×3 (07:50→18:01)
[2023-05-12] MEDS: APIXABAN 2.5 MG TABLET PO SCH ×2 (08:59→16:49)
[2023-05-12] MEDS: PREDNISONE 20MG TABLET PO SCH (09:00)
[2023-05-12] MEDS: FLUCONAZOLE 100MG TABLET PO SCH (09:00)
[2023-05-12] MEDS: QUETIAPINE FUMARATE 25MG TABLET PO SCH ×2 (09:00→21:20)
[2023-05-12] MEDS: AMLODIPINE 5MG TABLET PO SCH (09:01)
[2023-05-12] MEDS: METOPROLOL TARTRATE 25MG TABLET PO SCH ×2 (09:10→16:49)
[2023-05-12] MEDS: BLOOD SUGAR DIAGNOSTIC STRIP TEST SCH ×3 (13:00→21:01)
[2023-05-12] MEDS: DUTASTERIDE 0.5MG CAPSULE PO SCH (21:21)
[2023-05-12] MEDS: DOXAZOSIN MESYLATE 4MG TABLET PO SCH (21:21)
[2023-05-13] VITALS: BP 113/65; PULSE 81; RESP 18; TEMP 96.6
[2023-05-13 04:00] VITALS: BP 118/63; PULSE 63; RESP 18; TEMP 97.5
[2023-05-13] MEDS: BLOOD SUGAR DIAGNOSTIC STRIP TEST SCH ×4 (05:59→21:00)
[2023-05-13] MEDS: DIPHENHYDRAMINE 25MG CAPSULE PO SCH ×3 (06:01→22:04)
[2023-05-13] MEDS: FAMOTIDINE 20MG TABLET PO SCH ×3 (06:01→22:05)
[2023-05-13] MEDS: BRIMONIDINE 0.2% OPHTH DROPS 5ML EACHEYE SCH ×3 (06:01→22:06)
[2023-05-13 08:00] VITALS: BP 137/74; PULSE 60; RESP 18; TEMP 95.7
[2023-05-13] MEDS: INSULIN LISPRO 100 UNITS/ML SUBCUT SCH ×4 (10:08→21:00)
[2023-05-13] MEDS: PREDNISONE 20MG TABLET PO SCH (10:11)
[2023-05-13] MEDS: FERROUS SULFATE 325MG TABLET PO SCH ×3 (10:11→17:47)
[2023-05-13] MEDS: QUETIAPINE FUMARATE 25MG TABLET PO SCH ×2 (10:12→22:04)
[2023-05-13] MEDS: FLUCONAZOLE 100MG TABLET PO SCH (10:12)
[2023-05-13] MEDS: APIXABAN 2.5 MG TABLET PO SCH ×2 (10:12→16:52)
[2023-05-13] MEDS: METOPROLOL TARTRATE 25MG TABLET PO SCH ×2 (10:13→16:52)
[2023-05-13] MEDS: AMLODIPINE 5MG TABLET PO SCH (10:14)
[2023-05-13 12:00] VITALS: BP 128/70; PULSE 63; RESP 18; TEMP 96.1
[2023-05-13 16:00] VITALS: BP 125/72; PULSE 63; RESP 18; TEMP 97.7
[2023-05-13 20:15] VITALS: BP 118/64; PULSE 86; RESP 18; TEMP 97.9
[2023-05-13] MEDS: DOXAZOSIN MESYLATE 4MG TABLET PO SCH (22:04)
[2023-05-13] MEDS: DUTASTERIDE 0.5MG CAPSULE PO SCH (22:04)
[2023-05-14 00:28] VITALS: BP 127/71; PULSE 76; RESP 18; TEMP 98
[2023-05-14 04:00] VITALS: BP 117/68; PULSE 72; RESP 17; TEMP 97.8
[2023-05-14] MEDS: BRIMONIDINE 0.2% OPHTH DROPS 5ML EACHEYE SCH ×3 (05:12→23:39)
[2023-05-14] MEDS: FAMOTIDINE 20MG TABLET PO SCH ×3 (05:12→21:21)
[2023-05-14] MEDS: BLOOD SUGAR DIAGNOSTIC STRIP TEST SCH ×4 (05:12→20:32)
[2023-05-14] MEDS: INSULIN LISPRO 100 UNITS/ML SUBCUT SCH ×4 (07:50→20:33)
[2023-05-14 08:00] VITALS: BP 132/72; PULSE 64; RESP 18; TEMP 97.4
[2023-05-14] MEDS: DIPHENHYDRAMINE 25MG CAPSULE PO SCH ×3 (08:38→23:37)
[2023-05-14] MEDS: PREDNISONE 20MG TABLET PO SCH (08:38)
[2023-05-14] MEDS: FLUCONAZOLE 100MG TABLET PO SCH (08:39)
[2023-05-14] MEDS: QUETIAPINE FUMARATE 25MG TABLET PO SCH ×2 (08:39→21:22)
[2023-05-14] MEDS: APIXABAN 2.5 MG TABLET PO SCH ×2 (08:39→17:52)
[2023-05-14] MEDS: FERROUS SULFATE 325MG TABLET PO SCH ×3 (08:40→17:52)
[2023-05-14] MEDS: METOPROLOL TARTRATE 25MG TABLET PO SCH ×2 (08:40→17:52)
[2023-05-14] MEDS: AMLODIPINE 5MG TABLET PO SCH (08:40)
[2023-05-14 12:00] VITALS: BP 118/69; PULSE 63; RESP 18; TEMP 97.7
[2023-05-14 16:00] VITALS: BP 122/72; PULSE 63; RESP 18; TEMP 97.1
[2023-05-14 20:00] VITALS: BP 123/70; PULSE 85; RESP 18; TEMP 97.5
[2023-05-14] MEDS: DUTASTERIDE 0.5MG CAPSULE PO SCH (21:22)
[2023-05-14] MEDS: DOXAZOSIN MESYLATE 4MG TABLET PO SCH (21:22)
[2023-05-15] VITALS: BP 128/75; PULSE 85; RESP 19; TEMP 97.5
[2023-05-15 04:00] VITALS: BP 125/82; PULSE 80; RESP 18; TEMP 97.5
[2023-05-15] MEDS: BLOOD SUGAR DIAGNOSTIC STRIP TEST SCH ×4 (06:26→21:00)
[2023-05-15] MEDS: FAMOTIDINE 20MG TABLET PO SCH (06:50)
[2023-05-15] MEDS: DIPHENHYDRAMINE 25MG CAPSULE PO SCH ×3 (06:50→23:30)
[2023-05-15] MEDS: FERROUS SULFATE 325MG TABLET PO SCH ×3 (06:50→17:48)
[2023-05-15] MEDS: BRIMONIDINE 0.2% OPHTH DROPS 5ML EACHEYE SCH ×3 (06:50→22:54)
[2023-05-15] MEDS: INSULIN LISPRO 100 UNITS/ML SUBCUT SCH ×4 (06:55→21:00)
[2023-05-15 07:20] LABS: BASOPHILS % 0.1 % (0.0-2.0); EOSINOPHILS % 0.9 % (0.0-5.0); HEMATOCRIT. 25.8 % (42.0-52.0); HEMOGLOBIN. 8.7 g/dL (14.0-18.0); LYMPHOCYTES % 7.5 % (20.0-50.0); MEAN CORPUSCULAR VOLUME 88.8 fL (80.0-94.0); MEAN PLATELET VOLUME 8.6 fl (7.4-10.4); MONOCYTES % 7.8 % (2.0-8.0); NEUTROPHILS % 83.7 % (40.0-76.0); PLATELET 251 x1000/uL (130-400); RED CELL DISTRIBUTION WIDTH 14.7 % (11.6-14.6)
[2023-05-15 07:55] VITALS: BP 126/65; PULSE 59; RESP 19; TEMP 97.7
[2023-05-15] MEDS: METOPROLOL TARTRATE 25MG TABLET PO SCH ×2 (09:00→17:48)
[2023-05-15] MEDS: APIXABAN 2.5 MG TABLET PO SCH ×2 (09:09→17:48)
[2023-05-15] MEDS: QUETIAPINE FUMARATE 25MG TABLET PO SCH ×2 (09:10→22:53)
[2023-05-15] MEDS: AMLODIPINE 5MG TABLET PO SCH (09:10)
[2023-05-15 12:00] VITALS: BP 119/64; PULSE 62; RESP 18; TEMP 97.7
[2023-05-15] MEDS ORDERED: ZOLPIDEM TARTRATE 5MG TABLET PO PRN (12:00)
[2023-05-15 16:00] VITALS: BP 132/65; PULSE 64; RESP 19; TEMP 97.2
[2023-05-15 20:00] VITALS: BP 127/71; PULSE 61; RESP 18; TEMP 98.7
[2023-05-15] MEDS: DOXAZOSIN MESYLATE 4MG TABLET PO SCH (22:53)
[2023-05-15] MEDS: DUTASTERIDE 0.5MG CAPSULE PO SCH (22:53)
[2023-05-16] VITALS: BP 131/70; PULSE 86; RESP 17; TEMP 97.3
[2023-05-16 04:00] VITALS: BP 129/78; PULSE 74; RESP 16; TEMP 97.6
[2023-05-16] MEDS: BRIMONIDINE 0.2% OPHTH DROPS 5ML EACHEYE SCH ×3 (05:57→21:33)
[2023-05-16] MEDS: BLOOD SUGAR DIAGNOSTIC STRIP TEST SCH ×4 (07:18→21:35)
[2023-05-16] MEDS: INSULIN LISPRO 100 UNITS/ML SUBCUT SCH ×4 (07:50→21:00)
[2023-05-16 08:02] VITALS: BP 126/75; PULSE 62; RESP 21; TEMP 96.6
[2023-05-16] MEDS: METOPROLOL TARTRATE 25MG TABLET PO SCH ×2 (09:05→17:18)
[2023-05-16] MEDS: FERROUS SULFATE 325MG TABLET PO SCH ×3 (09:05→17:17)
[2023-05-16] MEDS: APIXABAN 2.5 MG TABLET PO SCH ×2 (09:05→17:18)
[2023-05-16] MEDS: DIPHENHYDRAMINE 25MG CAPSULE PO SCH ×2 (09:06→15:30)
[2023-05-16] MEDS: AMLODIPINE 5MG TABLET PO SCH (09:06)
[2023-05-16] MEDS: QUETIAPINE FUMARATE 25MG TABLET PO SCH ×2 (09:06→21:31)
[2023-05-16 12:00] VITALS: BP 121/70; PULSE 63; RESP 21; TEMP 96.4
[2023-05-16 16:00] VITALS: BP 122/75; PULSE 67; RESP 21; TEMP 96.6
[2023-05-16 20:00] VITALS: BP 133/78; PULSE 63; RESP 18; TEMP 97.9
[2023-05-16] MEDS: DUTASTERIDE 0.5MG CAPSULE PO SCH (21:31)
[2023-05-16] MEDS: DOXAZOSIN MESYLATE 4MG TABLET PO SCH (21:32)
[2023-05-17] VITALS: BP 130/76; PULSE 63; RESP 18; TEMP 97.9
[2023-05-17] MEDS: DIPHENHYDRAMINE 25MG CAPSULE PO SCH ×3 (00:18→15:30)
[2023-05-17 04:00] VITALS: BP 110/66; PULSE 64; RESP 19; TEMP 97.9
[2023-05-17] MEDS: BRIMONIDINE 0.2% OPHTH DROPS 5ML EACHEYE SCH ×3 (06:05→22:00)
[2023-05-17] MEDS: BLOOD SUGAR DIAGNOSTIC STRIP TEST SCH ×4 (06:06→21:00)
[2023-05-17 07:19] LABS: BASOPHILS % 0.1 % (0.0-2.0); EOSINOPHILS % 7.5 % (0.0-5.0); HEMATOCRIT. 28.2 % (42.0-52.0); HEMOGLOBIN. 9.8 g/dL (14.0-18.0); LYMPHOCYTES % 14.5 % (20.0-50.0); MEAN CORPUSCULAR HEMOGLOBIN 30.5 pg (28.0-32.0); MEAN CORPUSCULAR VOLUME 87.6 fL (80.0-94.0); MEAN PLATELET VOLUME 8.4 fl (7.4-10.4); MONOCYTES % 10.1 % (2.0-8.0); NEUTROPHILS % 67.8 % (40.0-76.0); PLATELET 221 x1000/uL (130-400); RED BLOOD CELL COUNT 3.21 mill/uL (4.7-6.1); RED CELL DISTRIBUTION WIDTH 15.1 % (11.6-14.6)
[2023-05-17] MEDS: INSULIN LISPRO 100 UNITS/ML SUBCUT SCH ×4 (07:50→21:00)
[2023-05-17 08:00] VITALS: BP 124/70; PULSE 63; RESP 18; TEMP 97.5
[2023-05-17] MEDS: FERROUS SULFATE 325MG TABLET PO SCH ×3 (09:31→18:21)
[2023-05-17] MEDS: AMLODIPINE 5MG TABLET PO SCH (09:31)
[2023-05-17] MEDS: APIXABAN 2.5 MG TABLET PO SCH ×2 (09:32→18:21)
[2023-05-17] MEDS: QUETIAPINE FUMARATE 25MG TABLET PO SCH ×2 (09:32→20:47)
[2023-05-17] MEDS: METOPROLOL TARTRATE 25MG TABLET PO SCH ×2 (09:32→17:00)
[2023-05-17 11:56] VITALS: BP 120/71; PULSE 64; RESP 18; TEMP 97.8
[2023-05-17 16:00] VITALS: BP 102/69; PULSE 62; RESP 18; TEMP 97.4
[2023-05-17 20:00] VITALS: BP 122/71; PULSE 62; RESP 18; TEMP 97.6
[2023-05-17] MEDS: DUTASTERIDE 0.5MG CAPSULE PO SCH (20:47)
[2023-05-17] MEDS: DOXAZOSIN MESYLATE 4MG TABLET PO SCH (20:55)
[2023-05-18] VITALS (7 sets, daily range): BP systolic 103–131; BP diastolic 54–84; PULSE 60–97; RESP 17–18; TEMP 96.6–98.4
[2023-05-18] MEDS: BRIMONIDINE 0.2% OPHTH DROPS 5ML EACHEYE SCH ×3 (06:00→22:00)
[2023-05-18] MEDS: BLOOD SUGAR DIAGNOSTIC STRIP TEST SCH ×4 (06:48→21:00)
[2023-05-18] MEDS: FERROUS SULFATE 325MG TABLET PO SCH ×3 (07:50→18:16)
[2023-05-18] MEDS: INSULIN LISPRO 100 UNITS/ML SUBCUT SCH ×4 (07:50→21:00)
[2023-05-18] MEDS: APIXABAN 2.5 MG TABLET PO SCH ×2 (08:28→17:00)
[2023-05-18] MEDS: METOPROLOL TARTRATE 25MG TABLET PO SCH ×2 (08:28→17:00)
[2023-05-18] MEDS: QUETIAPINE FUMARATE 25MG TABLET PO SCH ×2 (08:29→21:00)
[2023-05-18] MEDS: AMLODIPINE 5MG TABLET PO SCH (08:29)
[2023-05-18] MEDS: DUTASTERIDE 0.5MG CAPSULE PO SCH (21:00)
[2023-05-18] MEDS: DOXAZOSIN MESYLATE 4MG TABLET PO SCH (21:00)
[2023-05-19] VITALS: BP 129/79; PULSE 66; RESP 18; TEMP 98.6
[2023-05-19 04:00] VITALS: BP 136/76; PULSE 76; RESP 12; TEMP 96.3
[2023-05-19] MEDS: BRIMONIDINE 0.2% OPHTH DROPS 5ML EACHEYE SCH (06:00)
[2023-05-19] MEDS: BLOOD SUGAR DIAGNOSTIC STRIP TEST SCH (06:45)
[2023-05-19] MEDS: INSULIN LISPRO 100 UNITS/ML SUBCUT SCH (07:04)
[2023-05-19 08:00] VITALS: BP 133/72; PULSE 66; RESP 18; TEMP 96.7
[2023-05-19 08:31] VITALS: PULSE 66
[2023-05-19] MEDS: QUETIAPINE FUMARATE 25MG TABLET PO SCH (08:31)
[2023-05-19] MEDS: APIXABAN 2.5 MG TABLET PO SCH (08:31)
[2023-05-19] MEDS: AMLODIPINE 5MG TABLET PO SCH (08:31)
[2023-05-19] MEDS: METOPROLOL TARTRATE 25MG TABLET PO SCH (08:31)
[2023-05-19] MEDS: FERROUS SULFATE 325MG TABLET PO SCH (08:31)
== END 2023-05-19 11:40 | disposition home health service (06) | DRG 270 ==
LOC: ER 14:03 → 3WST 22:38 → ENRESERV 23:24 → 6EST 05-05 17:10 → 7WST 05-09 14:45 → 6EST 05-12 07:31
PROVIDERS: ADMIT Internal Medicine Nephrology; ATTEND Internal Medicine Nephrology
PROC: 04VY3DZ Restriction of Lower Artery with Intraluminal Device, Percutaneous Approach (ICD-10-PCS; principal; 2023-04-28)
PROC: 047D3ZZ Dilation of Left Common Iliac Artery, Percutaneous Approach (ICD-10-PCS; 2023-04-28)
PROC: 047C3ZZ Dilation of Right Common Iliac Artery, Percutaneous Approach (ICD-10-PCS; 2023-04-28)
PROC: B4181ZZ Fluoroscopy of Bilateral Renal Arteries using Low Osmolar Contrast (ICD-10-PCS; 2023-04-28)
PROC: B41J1ZZ Fluoroscopy of Other Lower Arteries using Low Osmolar Contrast (ICD-10-PCS; 2023-04-28)
PROC: 0DB68ZX Excision of Stomach, Via Natural or Artificial Opening Endoscopic, Diagnostic (ICD-10-PCS; 2023-05-01)
PROC: 0DBB8ZX Excision of Ileum, Via Natural or Artificial Opening Endoscopic, Diagnostic (ICD-10-PCS; 2023-05-01)
PROC: 0DBG8ZX Excision of Left Large Intestine, Via Natural or Artificial Opening Endoscopic, Diagnostic (ICD-10-PCS; 2023-05-01)
PROC: 4A00X4Z Measurement of Central Nervous Electrical Activity, External Approach (ICD-10-PCS; 2023-05-01)
DX: I72.3 Aneurysm of iliac artery (principal); N17.0 Acute kidney failure with tubular necrosis; E44.1 Mild protein-calorie malnutrition; E87.1 Hypo-osmolality and hyponatremia; I42.8 Other cardiomyopathies; I82.4Z2 Acute embolism and thrombosis of unspecified deep veins of left distal lower extremity; I82.412 Acute embolism and thrombosis of left femoral vein; I82.432 Acute embolism and thrombosis of left popliteal vein; K57.92 Diverticulitis of intestine, part unspecified, without perforation or abscess without bleeding; M48.56XA Collapsed vertebra, not elsewhere classified, lumbar region, initial encounter for fracture; R45.851 Suicidal ideations; F03.93 Unspecified dementia, unspecified severity, with mood disturbance; K51.50 Left sided colitis without complications; E86.0 Dehydration; I49.5 Sick sinus syndrome; N18.30 Chronic kidney disease, stage 3 unspecified; K44.9 Diaphragmatic hernia without obstruction or gangrene; I12.9 Hypertensive chronic kidney disease with stage 1 through stage 4 chronic kidney disease, or unspecified chronic kidney disease; I95.1 Orthostatic hypotension; I72.8 Aneurysm of other specified arteries; K22.2 Esophageal obstruction; F32.9 Major depressive disorder, single episode, unspecified; N40.0 Benign prostatic hyperplasia without lower urinary tract symptoms; R62.7 Adult failure to thrive; K59.00 Constipation, unspecified; R26.89 Other abnormalities of gait and mobility; D63.1 Anemia in chronic kidney disease; I71.40 Abdominal aortic aneurysm, without rupture, unspecified; K29.50 Unspecified chronic gastritis without bleeding; R29.6 Repeated falls; Z79.899 Other long term (current) drug therapy; Z79.01 Long term (current) use of anticoagulants; Z95.810 Presence of automatic (implantable) cardiac defibrillator; Z82.49 Family history of ischemic heart disease and other diseases of the circulatory system; Z68.23 Body mass index [BMI] 23.0-23.9, adult
CPT/HCPCS: 36415; 36600; 71045; 71275; 72100; 73521; 74174; 74176; 80048; 80053; 80061; 80305; 81003; 82140; 82270; 82375; 82550; 82553; 82607; 82728; 82746; 82805; 82962; 83036; 83540; 83550; 83605; 83735; 84100; 84145; 84153; 84439; 84443; 84481; 84484; 85014; 85018; 85025; 85044; 85347; 86803; 86850; 86900; 87340; 87426; 88305; 88312; 88313; 92610; 93005; 93306; 93880; 93970; 93971; 97162; 97164; 97165; 97168; 99291; A6261; C1893; C9113; J0610; J0696; J0885; J1100; J1200; J1630; J1644; J1815; J2060; J2250; J2370; J2405; J2543; J2704; J2765; J2930; J3010; J3490; J7030; J7060; J7070; J7512; Q0163; Q9967; A4315; G0103